=== PATIENT | female | born 1950 | race Hispanic/Latino ===

== ENCOUNTER 2018-04-10 06:43 | Day surgery (SDC) | payer OTHER ==
[2018-04-10] MEDS ORDERED: LIDOCAINE 2% MPF 5 ML VIAL ONE ×2 (06:55→07:57)
[2018-04-10] MEDS ORDERED: CYCLOPENTOLATE 1% OPTH 2 ML ONE (06:55)
[2018-04-10] MEDS ORDERED: NA CHLORIDE 0.9% 500 ML ONE (06:55)
[2018-04-10] MEDS ORDERED: TETRACAINE HCL 0.5% 2ML OPTH ONE (06:56)
[2018-04-10] MEDS ORDERED: BUPIVACAINE 0.25% PF 10 ML VIAL ONE (06:56)
[2018-04-10] MEDS ORDERED: PHENYLEPHRINE 10% OPTH 5ML ONE (06:57)
[2018-04-10] MEDS ORDERED: PHENYLEPHRINE 10% OPTH 5ML OPTH ONE ×2 (07:43→07:50)
[2018-04-10] MEDS ORDERED: CYCLOPENTOLATE 1% OPTH 2 ML OPTH ONE ×2 (07:43→07:50)
[2018-04-10] MEDS ORDERED: EPINEPHRINE/PF 1 MG/ML AMP ONE (07:55)
[2018-04-10] MEDS ORDERED: NS 0.9% VIAL 10 ML ONE (07:55)
[2018-04-10] MEDS ORDERED: BALANCED SALT IRRIG PLAIN 500 ML BTL IRR ONE (07:56)
[2018-04-10] MEDS ORDERED: DUOVISC 1 KIT OPTH ONE (07:56)
[2018-04-10] MEDS ORDERED: MOXIFLOXACIN HCL 10 DROPS/ML **OR USE OPTH ONE (07:57)
[2018-04-10] MEDS ORDERED: PROPOFOL 200 MG/20 ML VIAL IV ONE (07:57)
--- NOTE | 2018-04-10 08:49 | P.BOP ---
Preoperative diagnosis: Nuclear sclerotic and cortical cataract OD Postoperative diagnosis: Same Primary procedure: Phacoemulsification with IOL OD Estimated blood loss: None Anesthesia: Local (Subtenon's infusion with anesthesia for cataract surgery) Complications: None Implants: SN60WF +24.5 Transferred to: Other (Day surgery) Condition: Good
--- NOTE | 2018-04-10 20:28 | OP ---
Date of Procedure: 04/10/2018 Surgeon: Haylee Paez MD Anesthesiologist: 1. Herbert Hurt CRNA. 2. Topher Azevedo M.D. Preoperative Diagnosis: Nuclear sclerotic and cortical cataract OD (right eye). Operation Performed: Phacoemulsification with intraocular lens implant, right eye. Anesthesia: Per cataract surgery. Complications: None. Description Of Procedure: In day surgery, the patient was prepped with Betadine and draped. A conjunctival incision was made in the inferior nasal quadrant with Kosta scissors. A sub-Tenon block consisting of a 1:1 mixture of 2% Xylocaine and 0.25% bupivacaine was placed through the conjunctival incision with a blunt cannula. A [place] balloon was placed over the eye and the patient was transferred to the operating room. In the operating room the patient was prepped and draped in the usual sterile fashion for ophthalmic surgery. A lid speculum was placed in the right eye. Two paracentesis sites were made superiorly and inferiorly in the limbal cornea. Viscoat was placed in the anterior chamber and a crescent blade was used to make a corneal groove and tunnel, and a keratome was used to enter the anterior chamber. Provisc was placed in the anterior chamber and a 360 degree capsulotomy was performed with a cystitome. The lens was hydrodissected with BSS and rotated freely. The lens was removed with a stop and chop technique. 5.42 phaco CDE was used to remove the lens. Residual cortex was removed with the irrigation and aspiration. Provisc was placed in the capsular bag. A SN60 WF +24.5 lens was placed in the capsular bag without complications. Irrigation and aspiration was used to remove residual viscoelastic. The paracentesis sites were hydrated with BSS. The wound and paracentesis sites were inspected and found to be watertight. Vigamox 0.07 cc was placed intracamerally at the end of the procedure. The eye was irrigated with balanced salt solution. The eye was patched with a soft cotton patch and Sung metal shield. Comments: One to 5000 epinephrine was placed in the anterior chamber prior to Viscoat. The patient was returned to day surgery in good condition. Discharge Instructions: Ms. Peña is discharged to home in good condition and is to follow up with Dr. Paez in the morning. CONSUELO/ROXANE Voice ID: [id number] Report ID: [id number] MTDD
== END 2018-04-10 09:25 | disposition home or self-care (01) ==
LOC: OR 06:43
PROVIDERS: ATTEND Ophthalmology Retina Specialist
PROC: 08RJ3JZ Replacement of Right Lens with Synthetic Substitute, Percutaneous Approach (ICD-10-PCS; principal; 2018-04-10 08:30)
DX: H25.11 Age-related nuclear cataract, right eye (principal); H25.011 Cortical age-related cataract, right eye; I10 Essential (primary) hypertension; E78.00 Pure hypercholesterolemia, unspecified; Z83.3 Family history of diabetes mellitus; Z82.49 Family history of ischemic heart disease and other diseases of the circulatory system
CPT/HCPCS: 66984; J0171; V2630

== ENCOUNTER 2020-09-24 07:35 | Day surgery (SDC) | payer OTHER ==
--- NOTE | 2020-09-23 10:02 | RAD REPORT ---
EXAM DESCRIPTION: RAD - Chest Pa And Lat (2 Views) - 09/23/2020 9:51 am CLINICAL HISTORY: PRE-OP, pending temporal artery biopsy COMPARISON: None TECHNIQUE: Frontal and lateral views of the chest were obtained. FINDINGS: The lungs are clear. Heart size is normal and central vasculature is within normal limit s. No pleural effusion or pneumothorax seen. No acute bony finding noted. No aortic abnormality. IMPRESSION: No acute cardiopulmonary process.
[2020-09-23 10:30] LABS: Potassium 3.5 mmol/L (3.5-5.1)
--- NOTE | 2020-09-23 16:06 | EKG ---
Test Date: 2020-09-23 Test Time: 09:55:09 Employee Relations Representative: CHEIKH MEASUREMENT RESULTS: Intervals: Rate: 71 CA: 130 QRSD: 76 QT: 392 QTc: 425 [place]: P: 44 CA: 130 QRS: 56 T: 67 INTERPRETIVE STATEMENTS: Normal sinus rhythm Normal ECG Compared to ECG 08/05/1999 09:33:00 T-wave abnormality no longer present Electronically Signed On 09-23-20 16:05:17 PLUNGER SCOOP OPERATOR by Geovanni Thompson
[2020-09-24] MEDS ORDERED: CEFAZOLIN/SWI 1gm 1 GM/10 ML SYR ONE (08:06)
[2020-09-24] MEDS ORDERED: Ringers Lactate 1,000 ML IV ONE (08:06)
[2020-09-24] MEDS ORDERED: LIDOCAINE 1% MPF 30 ML VIAL ONE (08:08)
[2020-09-24] MEDS ORDERED: LIDOCAINE 1% MPF 5 ML VIAL ONE (09:19)
[2020-09-24] MEDS ORDERED: propofoL 200 MG/20 ML VIAL IV ONE (09:19)
[2020-09-24] MEDS ORDERED: FENTANYL CITR 100 MCG/2 ML ONE (09:19)
[2020-09-24] MEDS ORDERED: KETOROLAC 30 MG/ML INJ ONE (09:38)
[2020-09-24] MEDS ORDERED: ONDANSETRON 4 MG/2 ML VIAL ONE (09:38)
[2020-09-24] MEDS ORDERED: NS 0.9% VIAL 10 ML ONE (09:50)
[2020-09-24] MEDS ORDERED: EPHEDRINE SULF 50 MG/ML VIAL ONE (09:50)
[2020-09-24] MEDS ORDERED: Mastisol Adhesive Liq ONE (10:04)
--- NOTE | 2020-09-24 10:35 | OP ---
Date of Procedure: 09/24/2020 Surgeon: Shaheed Hector MD Filter Washer: LEELA Condon. Preoperative Diagnosis: Left-sided headache, rule out temporal arteritis. Postoperative Diagnosis: Left-sided headache, rule out temporal arteritis. Procedure: Left temporal artery biopsy and utilization of a Doppler device to locate the temporal ar bernadette. Estimated Blood Loss: Minimal. Specimens: Left temporal artery. Findings: As above. Anesthesia: General. Complications: None. Disposition: The patient tolerated the procedure in stable condition, taken to Recovery in good gene ral condition. Description Of Procedure: The patient was brought to the OR and placed in supine position. General anesthesia was began. The patient was prepped and draped in usual sterile fashion. Then, Doppler de vice used to isolate the branch of the temporal artery anterior and superior to the left ear. Then, lidocaine 1% was infiltrated locally. A 15-blade was used to make a 4 cm incision. Subcutaneous tis ta divided. The proximal and distal branch part of the artery identified, side branches identified, and then a 4 cm segment of the branch of the temporal artery excised and the cut end tied off with 4 -0 silk. Wound irrigated, bleeding controlled with cautery and then 4-0 chromic used to approximate the subcutaneous tissue and close the skin. Sterile dressing was applied. The patient was awakened and taken to Recovery in good general condition. Discharge Note: The patient will go to Day Surgery and home when stable. Disposition: Home. Condition: Stable. Discharge Instructions: Resume home medications and diet. Activity as tolerated. Remove outer dres sing in 2 days. Shower. Keep wound clean and dry. Keep Steri-Strips on at all times. Follow up in my office in 2 weeks, call for appointment. Follow up with Dr. Paez office in 1 week. Tylenol No.3 one tablet p.o. q.4h p.r.n. /MODL Voice ID: [id number] Report ID: [id number]
[2020-09-24 10:51] VITALS: TEMP 97.3
[2020-09-24] MEDS ORDERED: CODEINE 30MG/APAP 300MG TAB ONE (11:29)
[2020-09-24 12:37] VITALS: BP 112/51; O2SAT 96
== END 2020-09-24 11:50 | disposition home or self-care (01) ==
LOC: OR 07:35
PROVIDERS: ATTEND Surgery
PROC: 03BT0ZX Excision of Left Temporal Artery, Open Approach, Diagnostic (ICD-10-PCS; principal; 2020-09-24 09:00)
DX: R51.9 Headache, unspecified (principal); Z20.828 Contact with and (suspected) exposure to other viral communicable diseases
CPT/HCPCS: 37609; 93005; 80048; 36415; 88305; 71046; U0002; J2704; J3010; J0690; J7120; J2405